=== PATIENT | male | born 1995 | race Native Hawaiian/Other Pacific Islander ===

== ENCOUNTER 2020-05-01 10:08 | Emergency (ER) | payer BC ==
[2020-05-01 10:16] VITALS: BP 123/78; PULSE 93; RESP 18; TEMP 97.9
[2020-05-01] MEDS ORDERED: PENICILLIN VK 500MG STARTER 4 TAB BTL PO STA (10:30)
[2020-05-01] MEDS ORDERED: IBUPROFEN 600 MG TAB PO STA (10:30)
--- NOTE | 2020-05-01 10:35 | ED ---
General Adult HPI - General Chief complaint: Dental/Oral Stated complaint: tooth infection Time Seen by Provider: 05/01/20 10:24 Source: patient, RN notes reviewed Mode of arrival: ambulatory Limitations: no limitations - History of Present Illness Initial comments: 25-year-old male with a past medical history of hypertension presents to the emergency room for chief complaint of dental pain. Patient reports he has had left lower dental pain for 2 days. States he has not taken anything for pain. He has not taken antibiotics. Patient does not have a dentist at this time. Patient denies any fevers or chills. Denies neck stiffness or headache. Denies difficulty swallowing.Patient has no other complaints at this time including shortness of breath, chest pain, abdominal pain, nausea or vomiting, headache, or visual changes. - Related Data Home Medications Medication Instructions Recorded Confirmed ALPRAZolam [Xanax] 0.5 mg PO TID PRN 04/02/14 05/13/16 Previous Rx's Medication Instructions Recorded Penicillin V Potassium [Pen Vee K] 500 mg PO Q6H 10 Days #40 tablet 05/01/20 Allergies Allergy/AdvReac Type Severity Reaction Status Date / Time No Known Allergies Allergy Verified 05/01/20 10:13 Review of Systems ROS Statement: Those systems with pertinent positive or pertinent negative responses have been documented in the HPI. ROS Other: All systems not noted in ROS Statement are negative. Past Medical History Past Medical History: Hypertension History of Any Multi-Drug Resistant Organisms: None Reported Past Surgical History: No Surgical Hx Reported Past Psychological History: ADD/ADHD, Anxiety, Depression Smoking Status: Current every day smoker Past Alcohol Use History: Occasional Past Drug Use History: Marijuana General Exam Limitations: no limitations General appearance: alert, in no apparent distress Head exam: Present: atraumatic, normocephalic, normal inspection Eye exam: Present: normal appearance, PERRL, EOMI. Absent: scleral icterus, conjunctival injection, periorbital swelling ENT exam: Present: normal exam, mucous membranes moist, TM's normal bilaterally, normal external ear exam, other (No trismus, no sublingual edema, minimal left- sided lower facial edema.). Absent: normal oropharynx (fracture tooth 17, no drainage along gumline with visual inspection or palpation) Neck exam: Present: normal inspection, full ROM. Absent: tenderness, meningismus, lymphadenopathy Respiratory exam: Present: normal lung sounds bilaterally. Absent: respiratory distress, wheezes, rales, rhonchi, stridor Cardiovascular Exam: Present: regular rate, normal rhythm, normal heart sounds. Absent: systolic murmur, diastolic murmur, rubs, gallop, clicks Course Vital Signs 05/01/20 10:13 Temperature 97.9 F Pulse Rate 93 Respiratory 18 Rate Blood Pressure 123/78 O2 Sat by Pulse 99 Oximetry Medical Decision Making - Medical Decision Making Vitals are stable. Patient is afebrile. He has a fracture of tooth 17. Patient will be treated with penicillin. Discussed Motrin and Tylenol for pain and anti-inflammatory effects. Patient was given referrals to dentists. He will return here for any worsening symptoms which was discussed with him. Disposition Clinical Impression: Tooth pain Disposition: HOME SELF-CARE Condition: Good Instructions (If sedation given, give patient instructions): Toothache (ED) Additional Instructions: Please take Motrin and Tylenol for pain. He may alternate these every 3 hours as needed. He may also apply ice to the area. Take antibiotic as directed. Follow-up with dentist as soon as possible. Return to the emergency room for any worsening symptoms. [facility] [facility] [address] (existing clients only) New clients: [phone] 1st consult: $50 (includes XRs) Usually 30% less than private dentist for visits after. [employer] Have to pay $50 for Xrays and rest is covered [phone] Prescriptions: Penicillin V Potassium [Pen Vee K] 500 mg PO Q6H 10 Days #40 tablet Is patient prescribed a controlled substance at d/c from ED?: No Referrals: Janine Guerrier MD [Primary Care Provider] - 1-2 days Time of Disposition: 10:33
== END 2020-05-01 10:50 | disposition home or self-care (01) ==
LOC: EC 10:08
DX: S02.5XXA Fracture of tooth (traumatic), initial encounter for closed fracture (principal); I10 Essential (primary) hypertension; F41.9 Anxiety disorder, unspecified; F32.9 Major depressive disorder, single episode, unspecified; F17.200 Nicotine dependence, unspecified, uncomplicated; Z79.899 Other long term (current) drug therapy; X58.XXXA Exposure to other specified factors, initial encounter
CPT/HCPCS: 99282

== ENCOUNTER 2020-05-14 21:24 | Emergency (ER) | payer BC ==
[2020-05-14] MEDS ORDERED: DIPH,PERTUS(ACELL)TETVAC-LF 0.5 ML VIAL IM ONE (21:29)
[2020-05-14 21:33] VITALS: BP 166/104; PULSE 88; RESP 18; TEMP 98
--- NOTE | 2020-05-14 21:35 | ED ---
Fall HPI - General Stated Complaint: Fall Time Seen by Provider: 05/14/20 21:24 Source: patient, family, EMS, RN notes reviewed - History of Present Illness Initial Comments: This is a 25-year-old male history of hypertension who apparently fell down steps going out to his car this prior to arrival is not that he fell down 7 or 8 steps that the vomitus test was a drywall wall but he did apparently put his head through. Is initially unresponsive. He was having seizures he was would have 3 episodes of seizures lasting approximate 5 minutes. He did have periods where he became awake and alert. Upon arrival here he was awake alert oriented 3 with a Mark Coma Scale of 15. Of note per his family he had been using benzodiazepines from the street but he has not had any for 3 days. Other complaints or modifying factors at this time he is not sure when his last tetanus shot was. No focal deficits were noted. The patient has no recall of going down steps or the events that happened until he was in the bones. MD Complaint: fall - Related Data Home Medications Medication Instructions Recorded Confirmed FLUoxetine HCL [PROzac] 20 mg PO DAILY 05/14/20 05/14/20 Metoprolol Succinate [Toprol XL] 50 mg PO DAILY 05/14/20 05/14/20 Omeprazole 20 mg PO DAILY 05/14/20 05/14/20 Allergies Allergy/AdvReac Type Severity Reaction Status Date / Time No Known Allergies Allergy Verified 05/14/20 23:22 Review of Systems ROS Statement: Those systems with pertinent positive or pertinent negative responses have been documented in the HPI. ROS Other: All systems not noted in ROS Statement are negative. Past Medical History Past Medical History: Hypertension History of Any Multi-Drug Resistant Organisms: None Reported Past Surgical History: No Surgical Hx Reported Past Psychological History: ADD/ADHD, Anxiety, Depression Smoking Status: Current every day smoker Past Alcohol Use History: Occasional Past Drug Use History: Marijuana General Exam - General Exam Comments Initial Comments: This is a well-developed well-nourished awake alert oriented times female Mark Coma Scale of 15 he did have a cervical collar in place he did complain some neck pain Limitations: physical limitation General appearance: alert, anxious, in distress Head exam: Present: normocephalic, other (Multiple abrasions and contusion noted with left-sided facial swelling.) Eye exam: Present: normal appearance, PERRL, EOMI. Absent: scleral icterus, conjunctival injection, periorbital swelling ENT exam: Present: TM's normal bilaterally, other Neck exam: Present: normal inspection, other (C-collar in place) Respiratory exam: Present: normal lung sounds bilaterally. Absent: respiratory distress, wheezes, rales, rhonchi, stridor Cardiovascular Exam: Present: regular rate, normal rhythm, normal heart sounds. Absent: systolic murmur, diastolic murmur, rubs, gallop, clicks GI/Abdominal exam: Present: soft, normal bowel sounds. Absent: distended, tenderness, guarding, rebound, rigid Extremities exam: Present: normal inspection, full ROM, normal capillary refill. Absent: tenderness, pedal edema, joint swelling, calf tenderness Back exam: Present: normal inspection Neurological exam: Present: alert, oriented X3, CN II-XII intact Psychiatric exam: Present: normal affect, normal mood Skin exam: Present: warm, dry, intact, normal color. Absent: rash Course Vital Signs 05/14/20 21:24 Temperature 98 F Pulse Rate 88 Respiratory 18 Rate Blood Pressure 166/104 O2 Sat by Pulse 97 Oximetry Medical Decision Making - Medical Decision Making I did discuss findings with the patient and his mother as well as with Dr. John Dai and doctor Yester. Patient be patient to [facility]. Patient is was a level II trauma. - Lab Data Result diagrams: 05/14/20 21:32 05/14/20 21:32 Lab Results 05/14/20 05/14/20 05/14/20 Range/Units 21:32 21:32 21:32 WBC 20.3 H (3.8-10.6) k/uL RBC 4.83 (4.30-5.90) m/uL Hgb 16.0 (13.0-17.5) gm/dL Hct 46.2 (39.0-53.0) % MCV 95.6 (80.0-100.0) fL MCH 33.0 (25.0-35.0) pg MCHC 34.5 (31.0-37.0) g/dL RDW 11.6 (11.5-15.5) % Plt Count 369 (150-450) k/uL Neutrophils % 61 % Lymphocytes % 29 % Monocytes % 7 % Eosinophils % 0 % Basophils % 1 % Neutrophils # 12.3 H (1.3-7.7) k/uL Lymphocytes # 5.9 H (1.0-4.8) k/uL Monocytes # 1.4 H (0-1.0) k/uL Eosinophils # 0.1 (0-0.7) k/uL Basophils # 0.1 (0-0.2) k/uL Manual Slide Review Performed Large Platelets Present PT 10.2 (9.0-12.0) sec INR 1.0 (<1.2) APTT 22.7 (22.0-30.0) sec Sodium 136 L (137-145) mmol/L Potassium 4.2 (3.5-5.1) mmol/L Chloride 102 (98-107) mmol/L Carbon Dioxide 13 L (22-30) mmol/L Anion Gap 21 mmol/L BUN 11 (9-20) mg/dL Creatinine 1.12 (0.66-1.25) mg/dL Est GFR (CKD-EPI)AfAm >90 (>60 ml/min/1.73 sqM) Est GFR (CKD-EPI)NonAf >90 (>60 ml/min/1.73 sqM) Glucose 183 H (74-99) mg/dL POC Glucose (mg/dL) (75-99) mg/dL POC Glu Console Operator ID Calcium 9.4 (8.4-10.2) mg/dL Total Bilirubin 1.0 (0.2-1.3) mg/dL AST 45 (17-59) U/L ALT 34 (4-49) U/L Alkaline Phosphatase 70 (38-126) U/L Creatine Kinase 324 H (55-170) U/L Troponin I (0.000-0.034) ng/mL Total Protein 7.6 (6.3-8.2) g/dL Albumin 4.7 (3.5-5.0) g/dL Urine Color Urine Appearance (Clear) Urine pH (5.0-8.0) Ur Specific [place] (1.001-1.035) Urine Protein (Negative) Urine Glucose (UA) (Negative) Urine Ketones (Negative) Urine Blood (Negative) Urine Nitrite (Negative) Urine Bilirubin (Negative) Urine Urobilinogen (<2.0) mg/dL Ur Leukocyte Esterase (Negative) Urine RBC (0-5) /hpf Urine WBC (0-5) /hpf Urine Bacteria (None) /hpf Hyaline Casts (0-2) /lpf Urine Mucus (None) /hpf Urine Opiates Screen (NotDetected) Ur Oxycodone Screen (NotDetected) Urine Methadone Screen (NotDetected) Ur Propoxyphene Screen (NotDetected) Ur Barbiturates Screen (NotDetected) U Tricyclic Antidepress (NotDetected) Ur Phencyclidine Scrn (NotDetected) Ur Amphetamines Screen (NotDetected) U Methamphetamines Scrn (NotDetected) U Benzodiazepines Scrn (NotDetected) Urine Cocaine Screen (NotDetected) U Marijuana (THC) Screen (NotDetected) Serum Alcohol <10 mg/dL Blood Type Blood Type Confirm Blood Type Recheck Bld Type Recheck Status Antibody Screen Spec Expiration Date 05/14/20 05/14/20 05/14/20 Range/Units 21:32 21:32 21:47 WBC (3.8-10.6) k/uL RBC (4.30-5.90) m/uL Hgb (13.0-17.5) gm/dL Hct (39.0-53.0) % MCV (80.0-100.0) fL MCH (25.0-35.0) pg MCHC (31.0-37.0) g/dL RDW (11.5-15.5) % Plt Count (150-450) k/uL Neutrophils % % Lymphocytes % % Monocytes % % Eosinophils % % Basophils % % Neutrophils # (1.3-7.7) k/uL Lymphocytes # (1.0-4.8) k/uL Monocytes # (0-1.0) k/uL Eosinophils # (0-0.7) k/uL Basophils # (0-0.2) k/uL Manual Slide Review Large Platelets PT (9.0-12.0) sec INR (<1.2) APTT (22.0-30.0) sec Sodium (137-145) mmol/L Potassium (3.5-5.1) mmol/L Chloride (98-107) mmol/L Carbon Dioxide (22-30) mmol/L Anion Gap mmol/L BUN (9-20) mg/dL Creatinine (0.66-1.25) mg/dL Est GFR (CKD-EPI)AfAm (>60 ml/min/1.73 sqM) Est GFR (CKD-EPI)NonAf (>60 ml/min/1.73 sqM) Glucose (74-99) mg/dL POC Glucose (mg/dL) 172 H (75-99) mg/dL POC Glu Console Operator ID Cathy Campos Calcium (8.4-10.2) mg/dL Total Bilirubin (0.2-1.3) mg/dL AST (17-59) U/L ALT (4-49) U/L Alkaline Phosphatase (38-126) U/L Creatine Kinase (55-170) U/L Troponin I <0.012 (0.000-0.034) ng/mL Total Protein (6.3-8.2) g/dL Albumin (3.5-5.0) g/dL Urine Color Urine Appearance (Clear) Urine pH (5.0-8.0) Ur Specific [place] (1.001-1.035) Urine Protein (Negative) Urine Glucose (UA) (Negative) Urine Ketones (Negative) Urine Blood (Negative) Urine Nitrite (Negative) Urine Bilirubin (Negative) Urine Urobilinogen (<2.0) mg/dL Ur Leukocyte Esterase (Negative) Urine RBC (0-5) /hpf Urine WBC (0-5) /hpf Urine Bacteria (None) /hpf Hyaline Casts (0-2) /lpf Urine Mucus (None) /hpf Urine Opiates Screen (NotDetected) Ur Oxycodone Screen (NotDetected) Urine Methadone Screen (NotDetected) Ur Propoxyphene Screen (NotDetected) Ur Barbiturates Screen (NotDetected) U Tricyclic Antidepress (NotDetected) Ur Phencyclidine Scrn (NotDetected) Ur Amphetamines Screen (NotDetected) U Methamphetamines Scrn (NotDetected) U Benzodiazepines Scrn (NotDetected) Urine Cocaine Screen (NotDetected) U Marijuana (THC) Screen (NotDetected) Serum Alcohol mg/dL Blood Type A Positive Blood Type Confirm Blood Type Recheck No Previous Record Bld Type Recheck Status CABO Indicated Antibody Screen NEGATIVE Spec Expiration Date 05/17/2020233105/14/20 05/14/20 Range/Units 22:02 22:21 WBC (3.8-10.6) k/uL RBC (4.30-5.90) m/uL Hgb (13.0-17.5) gm/dL Hct (39.0-53.0) % MCV (80.0-100.0) fL MCH (25.0-35.0) pg MCHC (31.0-37.0) g/dL RDW (11.5-15.5) % Plt Count (150-450) k/uL Neutrophils % % Lymphocytes % % Monocytes % % Eosinophils % % Basophils % % Neutrophils # (1.3-7.7) k/uL Lymphocytes # (1.0-4.8) k/uL Monocytes # (0-1.0) k/uL Eosinophils # (0-0.7) k/uL Basophils # (0-0.2) k/uL Manual Slide Review Large Platelets PT (9.0-12.0) sec INR (<1.2) APTT (22.0-30.0) sec Sodium (137-145) mmol/L Potassium (3.5-5.1) mmol/L Chloride (98-107) mmol/L Carbon Dioxide (22-30) mmol/L Anion Gap mmol/L BUN (9-20) mg/dL Creatinine (0.66-1.25) mg/dL Est GFR (CKD-EPI)AfAm (>60 ml/min/1.73 sqM) Est GFR (CKD-EPI)NonAf (>60 ml/min/1.73 sqM) Glucose (74-99) mg/dL POC Glucose (mg/dL) (75-99) mg/dL POC Glu Console Operator ID Calcium (8.4-10.2) mg/dL Total Bilirubin (0.2-1.3) mg/dL AST (17-59) U/L ALT (4-49) U/L Alkaline Phosphatase (38-126) U/L Creatine Kinase (55-170) U/L Troponin I (0.000-0.034) ng/mL Total Protein (6.3-8.2) g/dL Albumin (3.5-5.0) g/dL Urine Color Yellow Urine Appearance Clear (Clear) Urine pH 5.5 (5.0-8.0) Ur Specific [place] 1.017 (1.001-1.035) Urine Protein 2+ H (Negative) Urine Glucose (UA) Negative (Negative) Urine Ketones 1+ H (Negative) Urine Blood Moderate H (Negative) Urine Nitrite Negative (Negative) Urine Bilirubin Negative (Negative) Urine Urobilinogen <2.0 (<2.0) mg/dL Ur Leukocyte Esterase Negative (Negative) Urine RBC 1 (0-5) /hpf Urine WBC 2 (0-5) /hpf Urine Bacteria Rare H (None) /hpf Hyaline Casts 17 H (0-2) /lpf Urine Mucus Few H (None) /hpf Urine Opiates Screen Not Detected (NotDetected) Ur Oxycodone Screen Not Detected (NotDetected) Urine Methadone Screen Not Detected (NotDetected) Ur Propoxyphene Screen Not Detected (NotDetected) Ur Barbiturates Screen Not Detected (NotDetected) U Tricyclic Antidepress Not Detected (NotDetected) Ur Phencyclidine Scrn Not Detected (NotDetected) Ur Amphetamines Screen Not Detected (NotDetected) U Methamphetamines Scrn Not Detected (NotDetected) U Benzodiazepines Scrn Not Detected (NotDetected) Urine Cocaine Screen Not Detected (NotDetected) U Marijuana (THC) Screen Detected H (NotDetected) Serum Alcohol mg/dL Blood Type Blood Type Confirm A Positive Blood Type Recheck Bld Type Recheck Status Antibody Screen Spec Expiration Date - EKG Data -: EKG Interpreted by Me EKG shows normal: sinus rhythm EKG Comments: Normal sinus rhythm at 70. Interval 156 QRS duration 84 daily since QTC 46/438 this is a normal-appearing EKG - Radiology Data Radiology results: report reviewed (Imaging reviewed patient does have a nasal fracture and soft tissue injury to the face no other significant findings at this time), image reviewed Critical Care Time Critical Care Time: Yes Total Critical Care Time: 39 Critical Care Time: critical care time includes initial presentation with history physical labs x- rays multiple reevaluation the patient. Discussion with the trauma surgeon Dr. Lopez as well as with the receiving physicians doctor Larissa in the emergency department and Dr. Dai the trauma surgeon. She'll be a ER to ER transfer via EMS. Disposition Clinical Impression: Seizures, Concussion, Facial contusion, Facial abrasion, Nasal bone fracture, Fall Disposition: OTHER INSTITUTION NOT DEFINED Condition: Fair Referrals: Janine Guerrier MD [Primary Care Provider] - 1-2 days - Out of Hospital Transfer - Req. Specs Out of Hospital Transfer - Requested Specifics: Other Emergency Center
--- NOTE | 2020-05-14 21:43 | XR ---
EXAMINATION TYPE: XR chest 1V portable DATE OF EXAM: 05/14/2020 COMPARISON: 04/02/2014 HISTORY: Chest pain fall. TECHNIQUE: FINDINGS: Heart and mediastinum are normal. Lungs are clear. Diaphragm is normal. Bony thorax appears normal. IMPRESSION: Normal chest.
--- NOTE | 2020-05-14 21:45 | XR ---
EXAMINATION TYPE: XR pelvis AP view DATE OF EXAM: 05/14/2020 COMPARISON: 12/20/2009 HISTORY: Fall. Pain. TECHNIQUE: FINDINGS: Pelvic ring is intact. Proximal femurs and hip joints are intact. Sacroiliac joints appear normal. IMPRESSION: Negative exam. No fracture.
[2020-05-14 21:51] LABS: AST 45 U/L (17-59); African American GFR (CKD) >90 (>60 ml/min/1.73 sqM); Albumin 4.7 g/dL (3.5-5.0); Alcohol <10 mg/dL; Alkaline Phosphatase 70 U/L (38-126); Anion Gap 21 mmol/L; Blood Urea Nitrogen 11 mg/dL (9-20); Calcium 9.4 mg/dL (8.4-10.2); Carbon Dioxide 13 mmol/L (22-30); Chloride 102 mmol/L (98-107); Creatine Kinase 324 U/L (55-170); Glucose 183 mg/dL (74-99); Non-African American GFR(CKD) >90 (>60 ml/min/1.73 sqM); Potassium 4.2 mmol/L (3.5-5.1); Sodium 136 mmol/L (137-145); Total Protein 7.6 g/dL (6.3-8.2)
[2020-05-14 21:53] LABS: Glucose,Whole Blood 172 mg/dL (75-99)
[2020-05-14 21:57] LABS: ALT 34 U/L (4-49)
--- NOTE | 2020-05-14 21:58 | CT ---
EXAMINATION TYPE: CT facial bones wo con DATE OF EXAM: 05/14/2020 COMPARISON: Injury. Pain. HISTORY: fall injury and seizures CT DLP: 1544.4 mGycm Automated exposure control for dose reduction was used. The mandibular ring is intact. There is intact zygomatic arches. Temporomandibular joints appear norm al. There is normal aeration of the paranasal sinuses. There is a mildly depressed fracture of the an terior nasal bone. There is no evidence of a blowout fracture. Orbital margins are intact. There is n o evidence of retro-orbital mass. There is soft tissue swelling anterior to the left zygoma and maxil la. IMPRESSION: Nasal bone fracture. Left side facial soft tissue swelling.
[2020-05-14] MEDS ORDERED: HYDROmorphone 1 MG/ML 1 ML SYRINGE IVP STA (22:03)
[2020-05-14 22:04] LABS: Partial Thromboplastin Time 22.7 sec (22.0-30.0); Prothrombin Time 10.2 sec (9.0-12.0)
[2020-05-14 22:20] LABS: Amphetamine Screen,Urine Not Detected (NotDetected); Barbiturate Screen,Urine Not Detected (NotDetected); Benzodiazepines Screen,Urine Not Detected (NotDetected); Cocaine Screen,Urine Not Detected (NotDetected); Methadone Screen, Urine Not Detected (NotDetected); Opiate Screen,Urine Not Detected (NotDetected); Oxycodone Screen, Urine Not Detected (NotDetected); Phencyclidine Screen,Urine Not Detected (NotDetected); Tricyclic Antidepressant,Urine Not Detected (NotDetected); Urn Cannabinoid Scrn Detected (NotDetected)
[2020-05-14 22:21] LABS: Basophils # (A) 0.1 k/uL (0-0.2); Basophils % (A) 1 %; Eosinophils # (A) 0.1 k/uL (0-0.7); Eosinophils % (A) 0 %; HCT 46.2 % (39.0-53.0); Lymphocytes # (A) 5.9 k/uL (1.0-4.8); Lymphocytes % (A) 29 %; MCHC 34.5 g/dL (31.0-37.0); MCV 95.6 fL (80.0-100.0); Mean Platelet Volume 8.3; Monocytes # (A) 1.4 k/uL (0-1.0); Monocytes % (A) 7 %; Neutrophils # (A) 12.3 k/uL (1.3-7.7); Neutrophils % (A) 61 %; Platelet Count 369 k/uL (150-450); RBC 4.83 m/uL (4.30-5.90); RDW 11.6 % (11.5-15.5); WBC 20.3 k/uL (3.8-10.6)
[2020-05-14 22:32] LABS: Appearance,Urine Clear (Clear); Bacteria,Urine Rare /hpf; Bilirubin,Urine Negative (Negative); Blood,Urine Moderate (Negative); Color,Urine Yellow; Glucose,Urine (UA) Negative (Negative); Hyaline Casts,Urine 17 /lpf (0-2); Ketones,Urine 1+ (Negative); Leukocyte Esterase,Urine Negative (Negative); Mucus,Urine Few /hpf; Nitrite,Urine Negative (Negative); PH, Urine 5.5 (5.0-8.0); Protein,Urine 2+ (Negative); RBC,Urine 1 /hpf (0-5); Specific Gravity,Urine 1.017 (1.001-1.035); Urobilinogen,Urine <2.0 mg/dL (<2.0); WBC,Urine 2 /hpf (0-5)
--- NOTE | 2020-05-14 22:56 | CT ---
EXAMINATION TYPE: CT brain cspine wo con DATE OF EXAM: 05/14/2020 COMPARISON: None HISTORY: Fall injury and seizures CT DLP: 1544.4 mGycm Automated exposure control for dose reduction was used. Ventricles have normal size. There is no mass effect nor midline shift. There is no sign of intracran ial hemorrhage. The calvarium is intact. Skull base is intact. Cervical vertebra have normal spacing and alignment. There is no evidence of a fracture. Facet joints are normal. Prevertebral soft tissues appear normal. There is normal aeration of the mastoid sinuses . IMPRESSION: Negative CT scan of the brain. Negative CT scan cervical spine. No fracture.
[2020-05-14 23:07] LABS: Large Platelets Present
[2020-05-14] MEDS ORDERED: levETIRAcetam IV 1,000 MG in SALINE 1 100ML.BAG IVPB ONE (23:45)
== END 2020-05-15 01:00 | disposition other institution (70) ==
LOC: EC 21:24
DX: S02.2XXA Fracture of nasal bones, initial encounter for closed fracture (principal); S06.0X0A Concussion without loss of consciousness, initial encounter; S00.83XA Contusion of other part of head, initial encounter; R56.9 Unspecified convulsions; F17.200 Nicotine dependence, unspecified, uncomplicated; F41.9 Anxiety disorder, unspecified; F32.9 Major depressive disorder, single episode, unspecified; Z23 Encounter for immunization; I10 Essential (primary) hypertension; Z79.899 Other long term (current) drug therapy; W10.9XXA Fall (on) (from) unspecified stairs and steps, initial encounter; Y93.89 Activity, other specified
CPT/HCPCS: 36415; 86900; 86901; 80053; 82550; 84484; 85025; 85610; 85730; 86850; 81001; 80306; 80320; 72170; 71045; 72125; 70486; 70450; 90715; 96365; 96375; 90471; 99291; J1170; J1953; 93005

== ENCOUNTER 2023-10-26 14:21 | Emergency (ER) | payer OTHER ==
--- NOTE | 2023-10-26 14:33 | ED ---
Overdose HPI - General Chief Complaint: Overdose Stated Complaint: Overdose Time Seen by Provider: 10/26/23 14:23 Source: patient, RN notes reviewed, old records reviewed Mode of arrival: EMS Limitations: no limitations - History of Present Illness Initial Comments: This is a 28-year-old male to the ER for evaluation of accidental acute drug ingestion. Heroin overdose. Patient was given Narcan and feels improved now is showing signs of withdrawal with nausea vomiting elevated blood pressure and high heart rate MD Complaint: intentional overdose -: days(s) Intent: unwilling to say Context: Intentional Overdose: relationship problems Context: Accidental Overdose: wanted to get high Associated Symptoms: depression Treatments Prior to Arrival: none - Related Data Home Medications Medication Instructions Recorded Confirmed FLUoxetine HCL [PROzac] 20 mg PO DAILY 05/14/20 05/14/20 Metoprolol Succinate [Toprol XL] 50 mg PO DAILY 05/14/20 05/14/20 Omeprazole 20 mg PO DAILY 05/14/20 05/14/20 Allergies Allergy/AdvReac Type Severity Reaction Status Date / Time No Known Allergies Allergy Verified 10/26/23 14:25 Review of Systems ROS Statement: Those systems with pertinent positive or pertinent negative responses have been documented in the HPI. ROS Other: All systems not noted in ROS Statement are negative. Past Medical History Past Medical History: Hypertension History of Any Multi-Drug Resistant Organisms: None Reported Past Surgical History: No Surgical Hx Reported Past Psychological History: ADD/ADHD, Anxiety, Depression Smoking Status: Current every day smoker Past Alcohol Use History: Occasional Past Drug Use History: Marijuana General Exam Limitations: no limitations General appearance: alert, in no apparent distress Head exam: Present: atraumatic, normocephalic, normal inspection Eye exam: Present: normal appearance, PERRL, EOMI. Absent: scleral icterus, conjunctival injection, periorbital swelling ENT exam: Present: normal exam, mucous membranes moist Neck exam: Present: normal inspection. Absent: tenderness, meningismus, lymphadenopathy Respiratory exam: Present: normal lung sounds bilaterally. Absent: respiratory distress, wheezes, rales, rhonchi, stridor Cardiovascular Exam: Present: regular rate, normal rhythm, normal heart sounds. Absent: systolic murmur, diastolic murmur, rubs, gallop, clicks GI/Abdominal exam: Present: soft, normal bowel sounds. Absent: distended, tenderness, guarding, rebound, rigid Extremities exam: Present: normal inspection, full ROM, normal capillary refill. Absent: tenderness, pedal edema, joint swelling, calf tenderness Back exam: Present: normal inspection Neurological exam: Present: alert, oriented X3, CN II-XII intact Psychiatric exam: Present: normal affect, normal mood Skin exam: Present: warm, dry, intact, normal color. Absent: rash Course Vital Signs 10/26/23 10/26/23 10/26/23 14:23 14:53 16:31 Temperature 97.5 F L Pulse Rate 96 100 103 H Respiratory 16 18 18 Rate Blood Pressure 180/106 155/116 138/94 O2 Sat by Pulse 98 100 100 Oximetry - Reevaluation(s) Reevaluation #1: 10/26/23 17:41 Medical records reviewed Reevaluation #2: 10/26/23 17:42 Patient symptoms improving Reevaluation #3: 10/26/23 17:42 Patient informed of results questions answered Reevaluation #4: Was pt. sent in by a medical professional or institution ( PA, PROMOTIONAL ADVERTISING ASSISTANT, urgent care, hospital, or assisted...) When possible be specific @ -no Did you speak to anyone other than the patient for history (EMS, parent, family, police, friend...)? What history was obtained from this source @ -no Did you review nursing and triage notes (agree or disagree)? Why? @ -agree Are old charts reviewed (outside hosp., previous admission, EMS record, old EKG, old radiological studies, urgent care reports/EKG's, assisted records)? Report findings @ -yes Differential Diagnosis (chest pain, altered mental status, abdominal pain women, abdominal pain men, vaginal bleeding, weakness, fever, dyspnea, syncope, headache, dizziness, GI bleed, back pain, seizure, CVA, palpatations, mental health, musculoskeletal)? @ -prior EKG interpreted by me (3pts min.). @ -yes X-rays interpreted by me (1pt min.). @ -no CT interpreted by me (1pt min.). @ -no U/S interpreted by me (1pt. min.). @ -no What testing was considered but not performed or refused? (CT, X-rays, U/S, labs)? Why? @ -none What meds were considered but not given or refused? Why? @ -none Did you discuss the management of the patient with other professionals (professionals i.e. , PA, PROMOTIONAL ADVERTISING ASSISTANT, lab, RT, psych nurse, social media marketer, size marker, teacher, information assurance officer, vocational case manager)? Give summary @ -no Was smoking cessation discussed for >3mins.? @ -no Was critical care preformed (if so, how long)? @ -no Were there social determinants of health that impacted care today? How? (Homelessness, low income, unemployed, alcoholism, drug addiction, transpor tation, low edu. Level, literacy, decrease access to med. care, detention, rehab)? @ -none Was there de-escalation of care discussed even if they declined (Discuss DNR or withdrawal of care, Hospice)? DNR status @ -no What co-morbidities impacted this encounter? (DM, HTN, Smoking, COPD, CAD, Cancer, CVA, ARF, Chemo, Hep., AIDS, mental health diagnosis, sleep apnea, morbid obesity)? @ -none Was patient admitted / discharged? Hospital course, mention meds given and route, prescriptions, significant lab abnormalities, going to OR and other pertinent info. @ - 28 male will be a discharged home after getting Narcan for overdose. Patient feels well Discharge Undiagnosed new problem with uncertain prognosis? @ -no Drug Therapy requiring intensive monitoring for toxicity (Heparin, Nitro, Insulin, Cardizem)? @ -no Were any procedures done? @ -no Diagnosis/symptom? @ -Opiate overdose Acute, or Chronic, or Acute on Chronic? @ -Acute Uncomplicated (without systemic symptoms) or Complicated (systemic symptoms)? @ -Complicated Side effects of treatment? @ -no Exacerbation, Progression, or Severe Exacerbation? @ -exacerbation Poses a threat to life or bodily function? How? (Chest pain, [place], [place], pneumonia, PE, COPD, DKA, ARF, appy, cholecystitis, CVA, Diverticulitis, Homicidal, Suicidal, threat to staff... and all critical care pts) @ -yes with significant overdose Medical Decision Making - Medical Decision Making 28 male will be a discharged home after getting Narcan for overdose. Patient feels well - EKG Data -: EKG Interpreted by Me (EKG sinus tachycardia 101 OR 135 QRS 91 QTc 401) Disposition Clinical Impression: Drug overdose, Accidental drug overdose Disposition: HOME SELF-CARE Condition: Fair Instructions (If sedation given, give patient instructions): Adult Overdose (ED) Is patient prescribed a controlled substance at d/c from ED?: No Referrals: None,Stated [REFERRING] - 1-2 days Time of Disposition: 15:45
[2023-10-26] MEDS: ONDANSETRON 4 MG TAB PO STA (14:51)
[2023-10-26] MEDS: LORazepam 1 MG TAB PO STA (14:51)
[2023-10-26 14:52] VITALS: TEMP 97.5
[2023-10-26] MEDS: ONDANSETRON 4 MG/2 ML VIAL IVP STA (14:54)
[2023-10-26] MEDS: LORazepam 2 MG/ML INJ IV STA (14:58)
[2023-10-26] MEDS: cloNIDine 0.3 MG/24HR PATCH TRANSDERM STA (14:58)
[2023-10-26 15:29] VITALS: RESP 18
[2023-10-26 16:41] VITALS: BP 138/94; PULSE 103
== END 2023-10-26 16:41 | disposition home or self-care (01) ==
LOC: EC 14:21
DX: T40.1X1A Poisoning by heroin, accidental (unintentional), initial encounter (principal); R00.0 Tachycardia, unspecified; F17.200 Nicotine dependence, unspecified, uncomplicated; F12.90 Cannabis use, unspecified, uncomplicated
CPT/HCPCS: 99285; 96374; 96375; J2060; J2405

== ENCOUNTER 2023-12-04 20:54 | Emergency (ER) | payer OTHER ==
--- NOTE | 2023-12-04 21:27 | ED ---
General Adult HPI - General Source: patient, police, EMS, RN notes reviewed Mode of arrival: EMS Limitations: no limitations <Juliet Ortiz - Last Filed: 12/04/23 21:24> - General Source: patient, police, RN notes reviewed Limitations: no limitations <Minor Baker - Last Filed: 12/04/23 23:48> <Monroe Escalona - Last Filed: 12/05/23 14:19> - General Chief complaint: Psychiatric Symptoms Stated complaint: Mental Health Time Seen by Provider: 12/04/23 21:05 - History of Present Illness Initial comments: Quick note: 28-year-old male presents to the emergency department for evaluation. Patient petitioned by police department. He reports that he was found in his vehicle sleeping in the parking lot to the [facility]. He notes that he has not slept much in the past couple days. He states that today he took "a couple Xanax" and drink some whiskey. He reports that he has been having some trouble with his home life. (Juliet Ortiz) Patient is a 28-year-old male present to the emergency department with police officers with petition for mental health evaluation. Patient admits to doing a cocaine sharif recently. Patient admits to drinking alcohol and having Xanax today. Patient told officers this was to fight off the demons. Patient was found in the car. Car was not running. Patient denies suicidal or homicidal thoughts however does admit to being depressed. No hallucinations. No new physical complaints (Minor Baker) - Related Data Home Medications Medication Instructions Recorded Confirmed Metoprolol Succinate [Toprol XL] 50 mg PO DAILY 05/14/20 12/05/23 buPROPion XL [Wellbutrin XL] 300 mg PO DAILY 12/05/23 12/05/23 hydrOXYzine HCL [Atarax] 25 mg PO BID PRN 12/05/23 12/05/23 Allergies Allergy/AdvReac Type Severity Reaction Status Date / Time No Known Allergies Allergy Verified 12/05/23 07:56 Review of Systems ROS Other: All systems not noted in ROS Statement are negative. <Juliet Ortiz - Last Filed: 12/04/23 21:24> ROS Other: All systems not noted in ROS Statement are negative. Constitutional: Denies: fever Eyes: Denies: eye pain ENT: Denies: ear pain Psychiatric: Reports: as per HPI. Denies: depression, suicidal thoughts <Minor Baker - Last Filed: 12/04/23 23:48> ROS Other: All systems not noted in ROS Statement are negative. <Monroe Esaclona - Last Filed: 12/05/23 14:19> ROS Statement: Those systems with pertinent positive or pertinent negative responses have been documented in the HPI. Past Medical History Past Medical History: Hypertension History of Any Multi-Drug Resistant Organisms: None Reported Past Surgical History: No Surgical Hx Reported Past Psychological History: ADD/ADHD, Anxiety, Depression Smoking Status: Current every day smoker, Vaper Past Alcohol Use History: Occasional Past Drug Use History: Cocaine, Marijuana <Juliet Ortiz - Last Filed: 12/04/23 21:24> General Exam Limitations: no limitations <Juliet Ortiz - Last Filed: 12/04/23 21:24> Limitations: no limitations General appearance: alert, in no apparent distress Head exam: Present: normocephalic Eye exam: Present: normal appearance, PERRL Neck exam: Present: normal inspection Respiratory exam: Present: normal lung sounds bilaterally Cardiovascular Exam: Present: regular rate, normal rhythm GI/Abdominal exam: Present: soft. Absent: tenderness Extremities exam: Present: normal inspection Neurological exam: Present: alert Psychiatric exam: Present: flat affect Skin exam: Present: normal color <Minor Baker - Last Filed: 12/04/23 23:48> - General Exam Comments Initial Comments: Visual Physical Exam Vital signs reviewed General: Well-appearing, nontoxic, no acute distress. Head: Normocephalic, atraumatic Eyes: PERRLA, EOMI ENT: Airway patent Chest: Nonlabored breathing Skin: No visual rash, normal skin tone Neuro: Alert and oriented 3 Musculoskeletal: No gross abnormalities (Juliet Ortiz) Course Vital Signs 12/04/23 21:08 Temperature 97.4 F L Pulse Rate 68 Respiratory 18 Rate Blood Pressure 136/94 O2 Sat by Pulse 99 Oximetry Medical Decision Making <Juliet Ortiz - Last Filed: 12/04/23 21:24> <Minor Baker - Last Filed: 12/04/23 23:48> <Monroe Escalona - Last Filed: 12/05/23 14:19> - Medical Decision Making Quick note preformed and electronically signed by Juliet Ortiz PA-C (Juliet Ortiz) MDM back was pt. sent in by a medical professional or institution (ILDA Enciso, LAW LIBRARIAN, urgent care, hospital, or prison...) When possible be specific @ -[No] Did you speak to anyone other than the patient for history (EMS, parent, family, police, friend...)? What history was obtained from this source @ -Please officers help provide history including her concerns and petition Did you review nursing and triage notes (agree or disagree)? Why? @ -[I reviewed and agree with nursing and triage notes] Were old charts reviewed (outside hosp., previous admission, EMS record, old EKG, old radiological studies, urgent care reports/EKG's, prison records)? Report findings @ -[No old charts were reviewed] Differential Diagnosis (chest pain, altered mental status, abdominal pain women, abdominal pain men, vaginal bleeding, weakness, fever, dyspnea, syncope, headache, dizziness, GI bleed, back pain, seizure, CVA, palpatations, mental health, musculoskeletal)? @ -Differential Mental Health Depression, anxiety, bipolar, psychosis, schizophrenia, borderline personality, situational depression, adjustment disorder, behavioral disorder, brain tumor, malingering, substance abuse, encephalopathy, medication reaction, dementia, hypothyroidism, degenerative neurologic disorder, lupus.... This is not meant to be all-inclusive list EKG interpreted by me (3pts min.). @ -[As above] X-rays interpreted by me (1pt min.). @ -[None done] CT interpreted by me (1pt min.). @ -[None done] U/S interpreted by me (1pt. min.). @ -[None done] What testing was considered but not performed or refused? (CT, X-rays, U/S, labs)? Why? @ -[None] What meds were considered but not given or refused? Why? @ -[None] Did you discuss the management of the patient with other professionals (pr ofessionals i.e. ILDA Enciso, LAW LIBRARIAN, lab, RT, psych nurse, forensic social worker, page technician, teacher, technology officer, pillowcase cutter)? Give summary @ -[No] Was smoking cessation discussed for >3mins.? @ -[No] Was critical care preformed (if so, how long)? @ -[No] Were there social determinants of health that impacted care today? How? (Homelessness, low income, unemployed, alcoholism, drug addiction, transportation, low edu. Level, literacy, decrease access to med. care, fci, rehab)? @ -[No] Was there de-escalation of care discussed even if they declined (Discuss DNR or withdrawal of care, Hospice)? DNR status @ -[No] What co-morbidities impacted this encounter? (DM, HTN, Smoking, COPD, CAD, Cancer, CVA, ARF, Chemo, Hep., AIDS, mental health diagnosis, sleep apnea, morbid obesity)? @ -[None] Was patient admitted / discharged? Hospital course, mention meds given and route, prescriptions, significant lab abnormalities, going to OR and other pertinent info. @ -Patient presents with police officers with concerns for mental health. Patient was petition. Patient will be seen by mental health (Minor Baker) Patient medically cleared by previous provider. Pending EPS evaluation. EPS evaluated the patient determined that patient does not meet inpatient criteria. Patient be discharged home with a safety plan. Patient in agreement this plan. Diagnosis/symptom? @ -Encounter for psychiatric evaluation Acute, or Chronic, or Acute on Chronic? @ -Acute Uncomplicated (without systemic symptoms) or Complicated (systemic symptoms)? @ -Complicated Side effects of treatment? @ -None Exacerbation, Progression, or Severe Exacerbation] @ -No Poses a threat to life or bodily function? @ -Unlikely (Monroe Escalona) Disposition <Juliet Ortiz - Last Filed: 12/04/23 21:24> <Minor Baker - Last Filed: 12/04/23 23:48> Is patient prescribed a controlled substance at d/c from ED?: No Time of Disposition: 10:14 <Monroe Escalona - Last Filed: 12/05/23 14:19> Clinical Impression: Encounter for psychiatric assessment Disposition: HOME SELF-CARE Condition: Good Additional Instructions: follow safety plan Referrals: Janine Guerrier MD [Primary Care Provider] - 1-2 days
[2023-12-04 21:36] VITALS: BP 136/94; PULSE 68; RESP 18; TEMP 97.4
== END 2023-12-05 10:46 | disposition home or self-care (01) ==
LOC: EC 20:54
DX: Z00.8 Encounter for other general examination (principal); F17.290 Nicotine dependence, other tobacco product, uncomplicated; F12.90 Cannabis use, unspecified, uncomplicated; F14.90 Cocaine use, unspecified, uncomplicated
CPT/HCPCS: 82075; 99285